=== PATIENT | female | born 1995 ===

== ENCOUNTER 2017-09-04 11:07 | Inpatient (IN) | payer MEDICAID ==
[2017-09-04 14:35] VITALS: BMI 33.3
[2017-09-04] MEDS ORDERED: Lactated Ringer's 1,000 ML IV SCH (14:35)
[2017-09-04] MEDS: Lactated Ringer's 1,000 ML IV SCH ×2 (14:35→15:36)
--- NOTE | 2017-09-04 14:35 | OBHP ---
Datetime: 09/04/2017 11:45 IP Adm Impression: Term, intrauterine ; No Active Labor IP Admit Plan: Admit to unit; Observation/Evaluation Admit Comment, IP Provider: 22 yo EGA 38.6 presents with CTX and suspected ROM Per patient mucus plug expelled, 2 days prior, pink in color, intermittent leak of fluid. No obvio us gush of fluid or conisistent flow of fluid. CTX began Yesterday afternoon. Starting 3 hours prior to admission, pt states ctx occuring every 5 minutes. Denies: profuse vaginal bleeding Reports movement ROS: denies dizziness, CP/SOB/N/V, epigastric pain or dysuria PNC: CLAU HuttonM: reports during , symptom of milk discharge from breast. Had dx of hyperprolactinemia and head CT performed 10/11/2016 Normal. obhx: 2009: 40 wk Male ; 2012 40 WK Female ; both uncomplicated pmhx: none famhx: dm, htn soc: denies: smoking, etoh, drugs sur lap angelo NKDA med: PNV Gen: AAOX3, no in acute distress Cardiac: S1 S2 no murmurs Lungs: CTA bilaterally , no wheezing Abdomen: gravid, nontender, active bowel sounds Negative for calf tenderness Bedside US: vertex 22 yo F IUP EGA 38.6 based on LMP 12/06/2016 -Monitor for FHT, NST -monitor for progession of labor hiv: neg; hbsag: neg; gbs: neg; rubella: immune; gc/c: neg; rpr: neg O+, ab neg Quantiferon gold neg 02/06/[address] Cj Jara MD PGY1 Addendum: Patient observed at OB ED. On reexam, patient 6 cm, 100% effaced, -1 station. heart tracing category 1. Plan to admit patient for management of labor and delivery. Discuss plan with patient and all patient questions answered. Patient declining any pain management at this time. [place] Pelvic Type - PN: Adequate Extremities - PN: Normal Abdomen - PN: Normal Back - PN: Normal Breast - PN: Not Done Lungs - PN: Normal Heart - PN: Normal Thyroid - PN: Not Done Neurologic - PN: Normal HEENT - PN: Normal General - PN: Normal FHR - Baseline A Provider: 130 Membranes, Provider: Intact Pool Provider: Negative Nitrazine Provider: Negative IP Hx Assessment: The History has been Reviewed and is Current EGA AdmitDate IP: 38.6 Vital Signs Provider: Reviewed; Within Normal Limits IP Chief Complaint: Uterine contractions; Suspected ruptured membranes; Maternal discomfort NICHD Variability Prov Fetus A: Moderate 6-25bpm NICHD Accel Fetus A IP Provider: 15X15 FHR Category Provider Fetus A: Category I NICHD Decel Fetus A IP Provider: None Dilatation, Provider: 4 Effacement, Provider: 70 Station, Provider: -2 Genitourinary Exam: Normal DTRs - PN: Not Done
[2017-09-04 15:35] LABS: BASO % 0.2 % (0.0-2.0); EOS % 0.1 % (0.0-4.0); HEMOGLOBIN 13.1 g/dL (12.0-16.0); LYMPH # 2.3 K/uL (1.0-4.3); LYMPH % 17.3 % (20.0-40.0); MEAN CELL VOLUME 82.9 fl (81.0-99.0); MEAN CORPUSCULAR HEMOGLOBIN 27.8 pg (27.0-31.0); MEAN CORPUSCULAR HGB CONC 33.6 g/dL (33.0-37.0); MEAN PLATELET VOLUME 8.3 fl (7.2-11.7); MONO # 0.6 K/uL (0.0-0.8); MONO % 4.2 % (0.0-10.0); NEUT # 10.3 K/uL (1.8-7.0); NEUT % 78.2 % (50.0-75.0); NRBC % 0.1 % (0.0-0.0); RBC 4.7 Mil/uL (3.80-5.20); RED CELL DISTRIBUTION WIDTH 15.7 % (11.5-14.5); WHITE BLOOD COUNT 13.2 K/uL (4.8-10.8)
[2017-09-04] MEDS ORDERED: Lidocaine 1% Inj (20ml) ONE (15:39)
--- NOTE | 2017-09-04 18:22 | OBPN ---
Datetime: 09/04/2017 18:17 IP Progress Impression: Normal progression of labor; Reassuring heart rate IP Procedures: Sterile Vag Exam IP Progress Plan: Continue present management Contraction Comments Provider: q2-3min FHR - Baseline A Provider: 120s-130s IP Progress Note Comment: Cat I FHT. Labor progressing well. Anticipate Vital Signs Provider: Reviewed; Within Normal Limits NICHD Accel Fetus A IP Provider: 15X15 FHR Category Provider Fetus A: Category I NICHD Variability Prov Fetus A: Moderate 6-25bpm Dilatation, Provider: 9 Effacement, Provider: 100 Station, Provider: 0 NICHD Decel Fetus A IP Provider: None Datetime: 09/04/2017 11:45 Pool Provider: Negative Nitrazine Provider: Negative Membranes, Provider: Intact
[2017-09-04] MEDS ORDERED: Oxycodone/Acetaminophen 5/325 mg Tab PO PRN ×2 (19:26→19:38)
--- NOTE | 2017-09-04 19:45 | OBADHP ---
Datetime: 09/04/2017 18:17 FHR - Baseline A Provider: 120s-130s Contraction Comments Provider: q2-3min Vital Signs Provider: Reviewed; Within Normal Limits NICHD Variability Prov Fetus A: Moderate 6-25bpm NICHD Accel Fetus A IP Provider: 15X15 FHR Category Provider Fetus A: Category I NICHD Decel Fetus A IP Provider: None Dilatation, Provider: 9 Effacement, Provider: 100 Station, Provider: 0 Datetime: 09/04/2017 11:45 Admit Comment, IP Provider: 22 yo EGA 38.6 presents with CTX and suspected ROM Per patient mucus plug expelled, 2 days prior, pink in color, intermittent leak of fluid. No obvio us gush of fluid or conisistent flow of fluid. CTX began Yesterday afternoon. Starting 3 hours prior to admission, pt states ctx occuring every 5 minutes. Denies: profuse vaginal bleeding Reports movement ROS: denies dizziness, CP/SOB/N/V, epigastric pain or dysuria PNC: Paola Leyva, CNM: reports during , symptom of milk discharge from breast. Had dx of hyperprolactinemia and head CT performed 10/11/2016 Normal. obhx: 2009: 40 wk Male ; 2012 40 WK Female ; both uncomplicated pmhx: none famhx: dm, htn soc: denies: smoking, etoh, drugs sur lap angelo NKDA med: PNV Gen: AAOX3, no in acute distress Cardiac: S1 S2 no murmurs Lungs: CTA bilaterally , no wheezing Abdomen: gravid, nontender, active bowel sounds Negative for calf tenderness Bedside US: vertex 22 yo F IUP EGA 38.6 based on LMP 12/06/2016 -Monitor for FHT, NST -monitor for progession of labor hiv: neg; hbsag: neg; gbs: neg; rubella: immune; gc/c: neg; rpr: neg O+, ab neg Quantiferon gold neg 02/06/[address] Cj Jara MD PGY1 Addendum: Patient observed at OB ED. On reexam, patient 6 cm, 100% effaced, -1 station. heart tracing category 1. Plan to admit patient for management of labor and delivery. Discuss plan with patient and all patient questions answered. Patient declining any pain management at this time. Cj Pelvic Type - PN: Adequate Extremities - PN: Normal Abdomen - PN: Normal Back - PN: Normal Breast - PN: Not Done Lungs - PN: Normal Heart - PN: Normal Thyroid - PN: Not Done Neurologic - PN: Normal HEENT - PN: Normal General - PN: Normal Membranes, Provider: Intact Pool Provider: Negative Nitrazine Provider: Negative IP Hx Assessment: The History has been Reviewed and is Current IP Chief Complaint: Uterine contractions; Suspected ruptured membranes; Maternal discomfort Genitourinary Exam: Normal DTRs - PN: Not Done EGA AdmitDate IP: 38.6 IP Adm Impression: Term, intrauterine ; No Active Labor IP Admit Plan: Admit to unit; Observation/Evaluation
--- NOTE | 2017-09-04 19:50 | OBDS ---
DELIVERY PERSONNEL Delivery Doctor: Mikey Corona MD Merchant Seaman: Francie Patterson RN/ Corinna Moreno RN MATERNAL INFORMATION Delivery Anesthesia: None Medications in Delivery: Pitocin 30 units Estimated Blood Loss (ml): 150 Placenta Cultured: Yes Maternal Complications: None Provider Comments: Normal spontaneous vaginal delivery. Patient delivered viable with Apgars of 9 and 9 at one and 5 minutes respectively. No lacer ations, perineum intact. Placenta delivered spontaneously. Uterus firm and appropriately hemostatic f ollowing delivery. Patient tolerated delivery well. No couple locations. Estimated blood loss 200 mL. LABOR SUMMARY EDC: 09/12/2017 00:00 No. Babies in Womb: 1 Attempted: No Labor Anesthesia: None LABOR INFORMATION Reason for Induction: Not Applicable Complete Dilatation: 09/04/2017 18:28 Other Ripening Agents: N/A Oxytocin: N/A Group B Beta Strep: Negative Antibiotics # of Doses: N/A Antibiotics Time of Last Dose: N/A Steroids Given: None Reason Steroids Not Administered: Not Applicable Other Reason Not Administered: N/A MEMBRANES Membranes Rupture Method: Artificial Rupture of Membranes: 09/04/2017 17:20 Length of Rupture (hrs): 1.25 Amniotic Fluid Color: Clear Amniotic Fluid Amount: Moderate Amniotic Fluid Odor: None STAGES OF LABOR Stage 2 hrs: 0 Stage 2 min: 7 Stage 3 hrs: 0 Stage 3 min: 3 VAGINAL DELIVERY Episiotomy: None Laceration Extension: N/A Laceration Type: None Initial Vag Sponge Count: 5 laps _ 10 4x4's Final Vag Sponge Count: 5 laps _ 10 4x4's Initial Vag Sharps Count: 2 needles Final Vag Sharps Count: 2 needles Sponge Count Correct: Yes Sharps Count Correct: Yes Count Comment: count correct and MD acknowledged BABY A INFORMATION Delivery Date/Time: 09/04/2017 18:35 Method of Delivery: Vaginal Born in Route : No : N/A Forceps: N/A Vacuum Extraction: N/A Shoulder Dystocia : No SHOULDER DYSTOCIA BABY A Delivery Date/Time: 09/04/2017 18:35 PRESENTATION/POSITION BABY A Presentation: Cephalic Cephalic Presentation: Vertex Breech Presentation: N/A PLACENTA INFORMATION BABY A Placenta Delivery Time : 09/04/2017 18:38 Placenta Method of Delivery: Spontaneous Placenta Status: Delivered SCORES BABY A Heart Rate 1 min: >100 bpm Resp Effort 1 min: Good Cry Reflex Irritability 1 min: Cough or Sneeze or Pulls Away Muscle Tone 1 min: Active Motion Color 1 min: Body [place], Extremities Blue Resuscitation Effort 1 min: Tactile Stimulation SCORE 1 MIN: 9 Heart Rate 5 min: >100 bpm Resp Effort 5 min: Good Cry Reflex Irritability 5 min: Cough or Sneeze or Pulls Away Muscle Tone 5 min: Active Motion Color 5 min: Body [place], Extremities Blue Resuscitation Effort 5 min: N/A SCORE 5 MIN: 9 INFORMATION BABY A Gestational Age at Delivery: 38.6 Gestational Status: Term Outcome : Liveborn Infant Condition : Stable Sex: Female IDENTIFICATION/MEDS BABY A ID Band Number: [id number] ID Band Location: Left Leg; Left Arm Vitamin K Given : Not Given Erythromycin Given: Not Given WEIGHT/LENGTH BABY A Birthweight (gms): 3345 Infant Weight (lb): 7 Weight (oz): 6 CORD INFORMATION BABY A No. Cord Vessels: 3 Nuchal Cord : Around Neck x1, Tight Nuchal Cord Other: N/A True Knot: 0 Cord pH Baby Arterial: N/A Infant Cord pH Baby Venous: N/A Cord Blood Taken: Yes Banking/Donate Info: N/A Suction: Mouth; Nose ASSESSMENT BABY A Infant Complications: None Physical Findings at Delivery: Within Normal Limits Respirations: Appears Normal Vice President Payer/ALS Called : No Infant Care By: Corinna Moreno RN/ Francie Patterson RN Transferred To: Remains with Mother
[2017-09-04 19:52] VITALS: O2SAT 100
[2017-09-05 06:20] LABS: HEMOGLOBIN 11.1 g/dL (12.0-16.0); MEAN CELL VOLUME 83.6 fl (81.0-99.0); MEAN CORPUSCULAR HEMOGLOBIN 27.8 pg (27.0-31.0); MEAN CORPUSCULAR HGB CONC 33.3 g/dL (33.0-37.0); RBC 3.98 Mil/uL (3.80-5.20); RED CELL DISTRIBUTION WIDTH 15.3 % (11.5-14.5)
[2017-09-05] MEDS: Multivitamin With Minerals Tab PO SCH (09:14)
[2017-09-05] MEDS ORDERED: Lansinoh for Breast Feeding Mothers TP PRN (15:57)
--- NOTE | 2017-09-06 08:14 | OBPPN ---
Datetime: 09/06/2017 06:18 PP Pain Prov: Within normal limits PP Nausea Prov: Denies PP Flatus Prov: Yes PP BM Prov: Yes PP C/S Incision Prov: Not Applicable PP Progress Prov: Normal PP Impression Prov: Normal progression PP Plan Prov: Discharge IP PP Procedures: None Vital Signs Provider PP: Reviewed; Within Normal Limits Datetime: 09/05/2017 06:08 PP Progress Note Prov: Patient seen and examined this morning at bedside. Mild abdominal pain but we ll controlled with pain medicines. Voiding w/o any difficulties, tolerating PO intake and reports goo d progression. No BM yet but passing gas per rectum. Denies chest pain, dyspnea, nausea , vomiting, and calf pain. VSS, afebrile Gen: awake, no acute distress Resp: cta b/l CV: normal S1S2, RRR Abd: soft, +BS, nontender, firm fundus below umbilicus. Ext: no edema, no calf tenderness Neuro/psych: AAOx3, no gross deficits, preserved mood and affect A/P: 22 yo , s/p NVD doing well on PPD 1. -Normal progression -c/w pain management -Encourage ambulation and -Pp H/H pending -Anticipated discharge 09/06/17 -Patient is aware and all the questions were answered YBecerra PGY-1 Patient seen with resident I agree with the note
[2017-09-06] MEDS: Multivitamin With Minerals Tab PO SCH (10:20)
[2017-09-06 23:10] VITALS: BP 104/64; PULSE 65; RESP 20; TEMP 98.6
== END 2017-09-06 14:00 | disposition home or self-care (01) | DRG 373 ==
LOC: H.EROB2 11:07 → H.L&D 14:35 → H.OB/GYN 21:02
PROVIDERS: ADMIT Obstetrics & Gynecology; ATTEND Obstetrics & Gynecology
PROC: 10E0XZZ Delivery of Products of Conception, External Approach (ICD-10-PCS; principal; 2017-09-04)
PROC: 10907ZC Drainage of Amniotic Fluid, Therapeutic from Products of Conception, Via Natural or Artificial Opening (ICD-10-PCS; 2017-09-04)
PROC: 4A1HXCZ Monitoring of Products of Conception, Cardiac Rate, External Approach (ICD-10-PCS; 2017-09-04)
DX: O69.1XX0 Labor and delivery complicated by cord around neck, with compression, not applicable or unspecified (principal); Z37.0 Single live birth; Z3A.38 38 weeks gestation of pregnancy